=== PATIENT | male | born 1995 | race Caucasian/White ===

== ENCOUNTER 2019-02-24 14:53 | Emergency (ER) | payer OTHER ==
[2019-02-24] MEDS ORDERED: DEPAKOTE ER250 MG PO (15:46)
[2019-02-24] MEDS ORDERED: ALPHA LIPOIC A200 MG PO (15:47)
[2019-02-24] MEDS ORDERED: CYMBALTA30 MG PO (15:47)
[2019-02-24] MEDS ORDERED: NAPROXEN375 MG PO (15:48)
[2019-02-24] MEDS ORDERED: MINIPRESS2 MG PO (15:48)
== END 2019-02-24 17:53 | disposition home or self-care (01) ==
LOC: ED 14:53
PROC: 0HQ1XZZ Repair Face Skin, External Approach (ICD-10-PCS; principal; 2019-02-24)
DX: S01.411A Laceration without foreign body of right cheek and temporomandibular area, initial encounter (principal); S01.81XA Laceration without foreign body of other part of head, initial encounter; W22.8XXA Striking against or struck by other objects, initial encounter; Z79.899 Other long term (current) drug therapy
CPT/HCPCS: 12014; 70450; 70486; 72125; 85025; 90471; 90715; 99284-25; G0480; J3010